=== PATIENT | male | born 2000 | race American Indian/Alaskan Native ===

== ENCOUNTER 2020-10-04 23:31 | Emergency (ER) | payer SELFPAY ==
[2020-10-04 23:41] VITALS: BP 126/67
--- NOTE | 2020-10-05 01:56 | Emergency Department Report ---
ED General Adult HPI - General Chief complaint: Skin/Abscess/Foreign Body Stated complaint: LOWER ABD PAIN Time Seen by Provider: 10/05/20 01:51 Source: patient Mode of arrival: Ambulatory Limitations: No Limitations - History of Present Illness Initial comments: 20-year-old male presents to the emergency room complaining of anus pain x1 day. Patient states that he had noticed some fullness to his anus area. Patient state is painful to sit. Patient denies any hard stools denies any anal intercourse. Patient denies any past medical history. Patient denies any bleeding from his rectum. Onset/Timin -: days(s) Location: buttocks (Anus) Severity scale (0 -10): 8 Quality: burning, stabbing Consistency: constant Improves with: none Worsens with: other (Defecation) Associated Symptoms: denies other symptoms - Related Data Previous Rx's Medication Instructions Recorded Last Taken Type Docusate Sodium [Colace] 100 mg PO BID PRN #40 capsule 10/05/20 Unknown Rx Hydrocort/Pramoxine [Proctofoam-Hc] [address] QDAY #1 can 10/05/20 Unknown Rx Ibuprofen [Motrin 600 MG tab] 600 mg PO Q8H PRN #30 tablet 10/05/20 Unknown Rx Allergies Allergy/AdvReac Type Severity Reaction Status Date / Time No Known Allergies Allergy Unverified 10/04/20 23:36 ED Review of Systems ROS: Stated complaint: LOWER ABD PAIN Other details as noted in HPI Comment: All other systems reviewed and negative ED Past Medical Hx - Past Medical History Previous Medical History?: No - Surgical History Past Surgical History?: No - Social History Smoking Status: Never Smoker Substance Use Type: Marijuana - Medications Home Medications: Home Medications Medication Instructions Recorded Confirmed Last Taken Type Docusate Sodium [Colace] 100 mg PO BID PRN #40 capsule 10/05/20 Unknown Rx Hydrocort/Pramoxine [Proctofoam-Hc] [address] QDAY #1 can 10/05/20 Unknown Rx Ibuprofen [Motrin 600 MG tab] 600 mg PO Q8H PRN #30 tablet 10/05/20 Unknown Rx ED Physical Exam - General Limitations: No Limitations General appearance: alert, in no apparent distress - Head Head exam: Present: atraumatic, normocephalic - Eye Eye exam: Present: normal appearance - ENT ENT exam: Present: mucous membranes moist - Neck Neck exam: Present: normal inspection, full ROM - Respiratory Respiratory exam: Absent: chest wall tenderness - Cardiovascular Cardiovascular Exam: Present: regular rate - Rectal Rectal exam: Present: hemorrhoids (Nonthrombosed nonstrangulated tender to palpate) - Back Exam Back exam: Present: normal inspection - Neurological Exam Neurological exam: Present: alert, oriented X3, normal gait - Psychiatric Psychiatric exam: Present: normal affect, normal mood - Skin Skin exam: Present: warm, dry, intact, normal color. Absent: rash ED Course Vital Signs 10/04/20 10/04/20 23:39 23:40 Temperature 97.6 F Pulse Rate 56 L Respiratory 18 Rate Blood Pressure 126/67 [Right] O2 Sat by Pulse 100 Oximetry ED Medical Decision Making - Medical Decision Making 20-year-old male presents to the emergency room complaining of anus pain x1 day. Patient states that he had noticed some fullness to his anus area. Patient state is painful to sit. Patient denies any hard stools denies any anal intercourse. Patient denies any past medical history. Patient denies any bleeding from his rectum. Patient appears to have a hemorrhoid. Place him on Proctofoam can take Tylenol ibuprofen and [id number] Colace to keep his stools soft. Patient be referred to a rectal specialist Critical care attestation.: If time is entered above; I have spent that time in minutes in the direct care of this critically ill patient, excluding procedure time. ED Disposition Clinical Impression: Hemorrhoid Qualifiers: Hemorrhoid type: unspecified Qualified Code(s): K64.9 - Unspecified hemorrhoids Disposition: TO HOME OR SELFCARE Is pt being admited?: No Does the pt Need Aspirin: No Condition: Stable Instructions: Hemorrhoids, [id number] Additional Instructions: Use Proctofoam as prescribed ibuprofen and Colace as needed. Follow-up with a colorectal specialist I have listed 1 below for your convenience. Prescriptions: Docusate Sodium [Colace] 100 mg PO BID PRN #40 capsule PRN Reason: Constipation Ibuprofen [Motrin 600 MG tab] 600 mg PO Q8H PRN #30 tablet PRN Reason: Pain Hydrocort/Pramoxine [Proctofoam-Hc] [address] QDAY #1 can Referrals: [facility] [Provider Group] - 3-5 Days Forms: Work/School Release Form(ED)
== END 2020-10-05 02:50 | disposition home or self-care (01) ==
LOC: ED 23:31
DX: K64.9 Unspecified hemorrhoids (principal); F12.10 Cannabis abuse, uncomplicated; Z79.899 Other long term (current) drug therapy
CPT/HCPCS: 99282